=== PATIENT | female | born 1980 | race Caucasian/White ===

== ENCOUNTER 2016-05-26 14:59 | Emergency (ER) | payer MEDICAID ==
--- NOTE | 2016-05-26 16:04 | UCPHY ---
H & P Patient Type: Established Chief Complaint Nursing Narrative: unexplained L hip pain 12/31 since last night. denies trauma. cms intact. unable to bear weight. Source: Patient - Personal History LMP (Females 10-55): Now - Medical/Surgical History Hx Asthma: No Hx Chronic Respiratory Disease: No Hx Diabetes: No Hx Cardiac Disease: No Hx Renal Disease: No Hx Cirrhosis: No Hx Alcoholism: No Hx HIV/AIDS: No Hx Splenectomy or Spleen Trauma: No Other PMH: sciatica R sided - Family History Significant Family History: No pertinent family hx - Social History Smoking Status: Never smoked Time Seen by Provider: 05/26/16 16:01 HPI/ROS: CHIEF COMPLAINT: left hip pain HISTORY OF PRESENT ILLNESS: 35-year-old female presents to Urgent Care complaining of left hip pain that started last night. Patient reports her pain radiates down her butt cheek and to her knee. She reports it is sharp in nature , worse with movement. Patient denies trauma. She denies numbness or tingling in her legs, no weakness in her legs, she denies loss of control of her bowel or bladder, no saddle anesthesias. Patient reports she has sciatic on her right side but this feels different. She denies fevers or chills, no nausea or vomiting, no urinary frequency, urgency or dysuria. The patient reports she took a Valium that she had at home and ibuprofen with no relief. REVIEW OF SYSTEMS: A comprehensive 10 point review of systems is otherwise negative aside from elements mentioned in the history of present illness. (Vita Blandon) - Physical Exam Exam: Physical Exam Gen: Alert and Oriented, tearful, screaming HEENT: PERRL, moist mucous membranes NECK: no meningismus CV: regular rate and regular rhythm PULM: CTAB, no wheezes ABDOMEN: soft, non tender to palpation, BS present BACK: Left-sided SI joint tenderness to palpation, no midline tenderness to palpation NEURO: Neurologically grossly intact, 5/5 strength bilateral lower extremities , 2/4 deep tendon reflexes patellar and Achilles, negative straight leg raise bilaterally EXTREMITIES: normal appearing, left hip with no swelling, erythema, full range of motion, no knee tenderness or ankle tenderness, 2+ pedal pulses, sensation intact to light touch SKIN: no rash or break in skin on exposed skin PSYCH: Tearful, rapid speech, crying, yelling. (Vita Blandon) Constitutional: Initial Vital Signs Temperature (C) 36.6 C 05/26/16 15:12 Heart Rate 91 05/26/16 15:12 Respiratory Rate 20 05/26/16 15:12 Blood Pressure 140/102 H 05/26/16 15:12 O2 Sat (%) 98 05/26/16 15:12 O2 Delivery Mode Room Air Allergies/Adverse Reactions: amoxicillin [Amoxicillin] Allergy (Unknown, Verified 05/26/16 15:07) escitalopram oxalate [From Lexapro] Allergy (Unknown, Verified 05/26/16 15:07) Penicillins Allergy (Unknown, Verified 05/26/16 15:07) Home Medications: Medication Instructions Recorded No Medications [No Known] 02/03/12 Hydrocodone/APAP 5/325 [Seward 1 tab PO Q4H PRN #12 tab 05/26/16 5/325] Methocarbamol [Robaxin-750] 750 - 1,500 mg PO QID PRN #20 05/26/16 tablet Medical Decision Making - Diagnostics Imaging: Left hip xray independently reviewed by me. Impression: There is no acute osseous abnormality identified. If there is further clinical concern regarding the patient's hip pain, MR imaging could be considered. Dictated By: Angel Schneider MD ([facility]ita Blandon) ED Course/Re-evaluation: IV established, CBC and chemistry panel along with ESR obtained. Left hip x-ray obtained. Patient is given 1 mg of IV Dilaudid for her 10/10 pain. CBC shows a mildly elevated white blood cell count at 10,000 with no left shift. Chemistry panel is normal, ESR is normal. The patient is afebrile, I do not think she has a septic joint. Patient's exam is consistent with lumbar radiculitis and sciatica. She will be discharged home with a prescription for Robaxin and hydrocodone. She was given 15 mg of IV Toradol prior to discharge. Patient is given strict return precautions for neurovascular compromise. (Vita Blandon) Other Provider: The patient was evaluated and managed by the nurse practitioner, Vita Blandon. My co-signature indicates that I have reviewed this chart and I agree with the findings and plan of care as documented. I am the secondary supervising physician. (Vicky Cooper) - Data Points Laboratory Results: Laboratory Results 05/26/16 16:20 05/26/16 16:20 05/26/16 05/26/16 05/26/16 16:20 16:20 16:20 WBC 10.35 10^3/uL H 10^3/uL (3.80-9.50) RBC 5.40 10^6/uL H 10^6/uL (4.18-5.33) Hgb 16.2 g/dL g/dL (12.6-16.3) Hct 47.4 % H % 47.4 % H % (38.0-47.0) (38.0-47.0) MCV 87.8 fL fL (81.5-99.8) MCH 30.0 pg pg (27.9-34.1) MCHC 34.2 g/dL g/dL (32.4-36.7) RDW 12.3 % % (11.5-15.2) Plt Count 369 10^3/uL 10^3/uL (150-400) MPV 9.8 fL fL (8.7-11.7) Neut % (Auto) 73.5 % % (39.3-74.2) Lymph % (Auto) 17.5 % % (15.0-45.0) Talbot % (Auto) 5.7 % % (4.5-13.0) Eos % (Auto) 2.6 % % (0.6-7.6) Baso % (Auto) 0.3 % % (0.3-1.7) Nucleat RBC Rel Count 0.0 % % (0.0-0.2) Absolute Neuts (auto) 7.61 10^3/uL H 10^3/uL (1.70-6.50) Absolute Lymphs (auto) 1.81 10^3/uL 10^3/uL (1.00-3.00) Absolute Monos (auto) 0.59 10^3/uL 10^3/uL (0.30-0.80) Absolute Eos (auto) 0.27 10^3/uL 10^3/uL (0.03-0.40) Absolute Basos (auto) 0.03 10^3/uL 10^3/uL (0.02-0.10) Absolute Nucleated RBC 0.00 10^3/uL 10^3/uL (0-0.01) Immature Gran % 0.4 % % (0.0-1.1) Immature Gran # 0.04 10^3/uL 10^3/uL (0.00-0.10) ESR 11 MM/HR MM/HR (0-20) Sodium 143 mEq/L mEq/L (134-144) Potassium 4.0 mEq/L mEq/L (3.5-5.2) Chloride 102 mEq/L mEq/L (97-110) Carbon Dioxide 20 mEq/l L mEq/l (22-31) Anion Gap 21 mEq/L H mEq/L (8-16) BUN 10 mg/dL mg/dL (7-23) Creatinine 0.7 mg/dL mg/dL (0.6-1.0) Estimated GFR > 60 Glucose 90 mg/dL mg/dL (70-100) Calcium 9.8 mg/dL mg/dL (8.5-10.4) Medications Given: Discontinued Medications Hydrocodone Bitart/Acetaminophen (Seward 5/325mg Prepack#6) 1 btl TAKEHOME EDNOW ONE Stop: 05/26/16 18:10 Last Admin: 05/26/16 18:11 Dose: 1 btl Hydrocodone Bitart/Acetaminophen (Seward 5/325) 2 tab PO EDNOW ONE Stop: 05/26/16 18:10 Last Admin: 05/26/16 18:05 Dose: 2 tab Cyclobenzaprine HCl (Flexeril) 10 mg PO EDNOW ONE Stop: 05/26/16 18:09 Last Admin: 05/26/16 18:09 Dose: 10 mg Cyclobenzaprine HCl (Flexeril 10 Mg Prepack#3) 1 btl TAKEHOME EDNOW ONE Stop: 05/26/16 18:09 Last Admin: 05/26/16 18:09 Dose: 1 btl Hydromorphone HCl (Dilaudid) 1 mg IVP EDNOW ONE Stop: 05/26/16 16:23 Last Admin: 05/26/16 16:38 Dose: 1 mg Ketorolac Tromethamine (Toradol) 15 mg IVP EDNOW ONE Stop: 03/05/17 17:07 Last Admin: 05/26/16 17:20 Dose: 15 mg Departure - Departure Disposition: Home, Routine, Self-Care Clinical Impression: Left lumbar radiculitis Condition: Good Instructions: Lumbar Radiculopathy (ED), Lower Back Exercises (ED), Core Strengthening Exercises (ED) Additional Instructions: Take 600 mg of ibuprofen 3 times per day with food, takes methocarbamol every 8 hours as needed for muscle spasms. Take Seward for severe pain. Ice or heat whichever feels better, gentle range of motion exercises, core strengthening exercises daily. Return to the emergency department for any loss of control of your bowel or bladder, numbness to your groin, fevers. Referrals: [facility] [Other] - As per Instructions Prescriptions: Hydrocodone/APAP 5/325 [Seward 5/325] 1 tab PO Q4H PRN #12 tab PRN Reason: Pain, Moderate Methocarbamol [Robaxin-750] 750 - 1,500 mg PO QID PRN #20 tablet PRN Reason: Spasms - PQRS PQRS Measurement: na (Vita Blandon)
[2016-05-26] MEDS ORDERED: HYDROmorphONE/DILAUDID 1 MG/ML SYR IVP PRN (16:15)
[2016-05-26] MEDS ORDERED: HYDROmorphONE/DILAUDID 1 MG/ML SYR IVP ONE (16:22)
[2016-05-26 16:28] LABS: % IMMATURE GRANULYOCYTES 0.4 % (0.0-1.1); ABSOLUTE IMMATURE GRANULOCYTES 0.04 10^3/uL (0.00-0.10); ADD DIFF? NO; ADD MORPH? NO; ADD SCAN? NO; ATYPICAL LYMPHOCYTE FLAG 0 (0-99); FRAGMENT RBC FLAG 0 (0-99); HEMATOCRIT 47.4 % (38.0-47.0); HEMOGLOBIN 16.2 g/dL (12.6-16.3); LEFT SHIFT FLG 0 (0-99); LIPEMIA HEMOLYSIS FLAG 90 (0-99); MEAN CELL HEMOGLOBIN CONCENTR. 34.2 g/dL (32.4-36.7); MEAN CELL VOLUME 87.8 fL (81.5-99.8); MEAN PLATELET VOLUME 9.8 fL (8.7-11.7); PLATELET CLUMPS FLAG 0 (0-99); PLATELET COUNT 369 10^3/uL (150-400); RED CELL DISTRIBUTION WIDTH 12.3 % (11.5-15.2)
[2016-05-26 16:39] LABS: ANION GAP 21 mEq/L (8-16); CALCIUM 9.8 mg/dL (8.5-10.4); CARBON DIOXIDE 20 mEq/l (22-31); CHLORIDE 102 mEq/L (97-110); CREATININE 0.7 mg/dL (0.6-1.0); GLOMERULAR FILTRATION RATE > 60; GLUCOSE 90 mg/dL (70-100); SODIUM 143 mEq/L (134-144)
[2016-05-26 16:51] LABS: HEMATOCRIT 47.4 % (38.0-47.0)
[2016-05-26 17:06] VITALS: BP 104/44; PULSE 92; RESP 18; TEMP 98.2; O2SAT 99
[2016-05-26] MEDS ORDERED: KETOROLAC 15 MG/1 ML SDV IVP ONE (17:06)
[2016-05-26] MEDS ORDERED: HYDROCOD/APAP 5/325 PREPACK#6 BTL TAKEHOME ONE ×2 (17:43→18:09)
[2016-05-26] MEDS ORDERED: HYDROCODONE/APAP 5/325 TAB ONE (17:51)
[2016-05-26] MEDS ORDERED: CYCLOBENZAPRINE 10 MG TAB ONE (17:56)
[2016-05-26] MEDS ORDERED: CYCLOBENZAPRINE 10MG PREPACK#3 BTL TAKEHOME ONE ×2 (18:03→18:08)
[2016-05-26] MEDS ORDERED: CYCLOBENZAPRINE 10 MG TAB PO ONE (18:08)
[2016-05-26] MEDS ORDERED: HYDROCODONE/APAP 5/325 TAB PO ONE (18:09)
== END 2016-05-26 18:11 | disposition home or self-care (01) ==
LOC: CED 14:59
DX: M54.16 Radiculopathy, lumbar region (principal); M54.31 Sciatica, right side
CPT/HCPCS: 73502-PO; 80048-PO; 85025-PO; 85652-PO; 96374-PO; 96375-PO; G0463-PO; J1170; J1885